=== PATIENT | male | born 1990 | race African-American/Black ===

== ENCOUNTER 2019-03-04 20:37 | Emergency (ER) | payer OTHER ==
[~2019-03-04] VITALS: Ht 180.3 cm; Wt 180.0 kg
[2019-03-04] MEDS: KETOROLAC 30MG/ML VIAL IM ONE (23:20)
[2019-03-04] MEDS: ACETAMINOPHEN 325MG TABLET PO ONE (23:21)
[2019-03-04] MEDS: TETANUS, DIPHTHERIA, PERTUSSIS VAC/PF 0.5ML (>7YR OLD) IM ONE (23:21)
[2019-03-05] MEDS: IBUPROFEN 400MG TABLET PO ONE (01:51)
[2019-03-05 05:07] VITALS: BP 134/85
== END 2019-03-05 05:14 | disposition home or self-care (01) ==
LOC: ER 20:37
DX: S82.492A Other fracture of shaft of left fibula, initial encounter for closed fracture (principal); V89.9XXA Person injured in unspecified vehicle accident, initial encounter; Y93.89 Activity, other specified; Y92.89 Other specified places as the place of occurrence of the external cause; Y99.8 Other external cause status
CPT/HCPCS: 72170; 73562; 73590; 73620; 73700; 90471; 90715; 96372; 99284; J1885